=== PATIENT | female | born 1995 ===

== ENCOUNTER 2020-03-17 22:45 | Inpatient (IN) | payer OTHER ==
--- NOTE | 2020-03-18 00:35 | HP ---
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: No: Alzheimer's, CVA, Dementia, Migraine, Multiple Sclerosis, Peripheral Neuropathy, Parkinson's, Seizure, Syncope, TIA, Vertigo, Other Pulmonary: No: Asthma, Bronchitis, Cancer, COPD, O2 Dependent, Pneumonia, Previously Intubated, Pulmonary Embolus, Pulmonary Fibrosis, Sleep Apnea, Other Gastrointestinal: No: Ascites, Cancer, Constipation, Crohn's Disease, Diverticulitis, Diverticulosis, Esophageal Varices, Gastritis, GERD, GI Bleed, Hemorrhoids, Hiatal Hernia, Inflamatory Bowel Disease, Irritable Bowel Disease, Pancreatitis, Peptic Ulcer Disease, Ulcerative Colitis, Other Hepatobiliary: No: Cirrhosis, Cholelithiasis, Cholecystitis, Choledocholithiasis, Hepatitis A, Hepatitis B, Hepatitis C, Other Renal/: No: Renal Failure, Renal Inusuff, BPH, Cancer, Hematuria, Hemodia lysis, Neurogenic Bladder, Renal Calculi, UTI, Other Reproductive: No: Ectopic , Endometriosis, Fibroids, PID, Polycystic Ovary Syndrome, Postmenopausal, Other Heme/Onc: No: Anemia, B12 Deficiency, Bleeding Disorder, Cancer, Current Chemotherapy, Current Radiation Therapy, Hemochromatosis, Hypercoaguable State, Myeloproliferative Synd, Sickle Cell Disease, Sickle Cell Trait, Thrombocytopenia, Other Infectious Disease: No: AIDS, C-Diff, Herpes Zoster, HIV, MRSA, STD's, Tuberculosis, VREF, Other Psych: No: Addictions, Anxiety, Bipolar, Depression, Panic, Psychosis, Schizophrenia, Other Musculoskeletal: No: Bursitis, Chronic low back pain, Hemiparesis, Hemiplegia, Osteoarthritis, Paraplegia, Other Rheumatology: No: Fibromyalgia, Gout, Lupus, Rheumatoid Arthritis, Sarcoidosis, Vasculitis, Other ENT: No: Allergic Rhinitis, Sinusitis, Other Endocrine: No: [place]'s Disease, [place]'s Disease, Diabetes Insipidus, Diabetes Mellitus, Hyperparathyroidism, Hyperthyroidism, Hypothyroidism, Osteopenia, SIADH, Other - Past Surgical History Past Surgical History: Yes: None Hx Myomectomy: No Hx Transabdominal Cerclage: No Home Medications - Allergies Allergies/Adverse Reactions: Allergies Allergy/AdvReac Type Severity Reaction Status Date / Time No Known Allergies Allergy Verified 03/18/20 01:21 - Home Medications Home Medications: Ambulatory Orders Vitamins (Sjr) - 1 tab PO DAILY 03/18/20 Family Medical History Family History: Unable to Obtain Assessment/Plan Patient is a multiparous female presenting in precipitous labor at 39.3wks as per patient with no available documentation and delivered by in-house laborist (safety office) Dr Andrews. Please refer to his documentation for additional details regarding delivery. Patient lives in a [facility].
[2020-03-18] MEDS ORDERED: ACETAMINOPHEN 325 MG TABLET (FP) ONE (00:36)
[2020-03-18] MEDS ORDERED: IBUPROFEN 600 MG TABLET (FP) PO ONE (00:36)
[2020-03-18] MEDS ORDERED: OXYTOCIN 20 UNITS in 0.9% NS 20 UNIT/1,000 ML INFUS.BAG IV ONE (00:36)
[2020-03-18] MEDS ORDERED: ACETAMINOPHEN 325 MG TABLET (FP) PO PRN (00:41)
[2020-03-18] MEDS ORDERED: BISACODYL 10 MG SUPP.RECT RC PRN (00:41)
[2020-03-18] MEDS ORDERED: IBUPROFEN 600 MG TABLET (FP) PO PRN (00:41)
[2020-03-18] MEDS ORDERED: BENZOCAINE 20% 57 GM BOTTLE TP PRN (00:41)
[2020-03-18] MEDS ORDERED: BENZOCAINE 28 GM HEMORRHOIDAL OINTMENT TP PRN (00:41)
[2020-03-18] MEDS ORDERED: WITCH HAZEL 50% (TUCKS) 40 PAD/JAR PAD TP PRN (00:41)
[2020-03-18] MEDS ORDERED: OXYTOCIN 20 UNITS in 0.9% NS 20 UNIT/1,000 ML INFUS.BAG IV SCH (00:45)
[2020-03-18] MEDS ORDERED: ELECTROLYTE-148 SOLN 1,000 ML IV SCH (00:45)
[2020-03-18 01:44] VITALS: BMI 39.1
[2020-03-18 01:49] LABS: BASO % 0.3 % (0-2.0); EOS % 1.1 % (0-4.5); HEMATOCRIT 36.9 % (32.4-45.2); HEMOGLOBIN 11.9 GM/dL (10.7-15.3); LYMPH % 8.9 % (8-40); MCH 27.3 pg (25.7-33.7); MCHC 32.3 g/dl (32.0-36.0); MEAN CELL VOLUME 84.3 fl (80-96); MEAN PLT VOLUME 9.6 fl (7.5-11.1); MONO % 4.7 % (3.8-10.2); PLATELET COUNT 383 K/MM3 (134-434); RBC 4.38 M/mm3 (3.60-5.2); RDW 15.1 % (11.6-15.6)
[2020-03-18 02:00] LABS: INR 0.9 (0.83-1.09); PROTHROMBIN TIME (PATIENT) 10.6 SEC (9.7-13.0)
[2020-03-18 02:03] LABS: ACTIVATED PTT 34.1 SECONDS (25.2-36.5)
[2020-03-18 02:09] LABS: ALBUMIN 2.6 g/dl (3.4-5.0); BILIRUBIN,TOTAL 0.4 mg/dL (0.2-1); BLOOD UREA NITROGEN 6.9 mg/dL (7-18); CALCIUM 8.7 mg/dL (8.5-10.1); CREATININE 0.6 mg/dL (0.55-1.3); POTASSIUM 4.5 mmol/L (3.5-5.1); TOT PROT 6.8 g/dl (6.4-8.2)
[2020-03-18 03:01] LABS: EPI CELLS >36 /uL (0-25.1); HYALINE CASTS 151 /uL (0-3.1); URINE APPEARANCE TURBID; URINE BILIRUBIN 1+ (NEGATIVE); URINE COLOR RED; URINE GLUCOSE (UA) NEGATIVE (NEGATIVE); URINE KETONE NEGATIVE (NEGATIVE); URINE LEUK ESTERASE 2+ (NEGATIVE); URINE NITRITE POSITIVE (NEGATIVE); URINE PROTEIN 2+ (NEGATIVE); URINE RBC 40692 /uL (0-23.9); URINE UROBILINOGEN 0.2 mg/dL (0.2-1.0); URINE WBC 156 /uL (0-25.8)
[2020-03-18 03:07] LABS: URINE BACTERIA 1.9 /uL (0-1359)
[2020-03-18 03:10] LABS: COCAINE, UR NEGATIVE ng/ml (CUTOFF=300); METHADONE, UR NEGATIVE ng/ml (CUTOFF=300); OPIATES, URI NEGATIVE ng/ml (CUTOFF=300); PHENCYCLIDINE,URINE NEGATIVE ng/ml (CUTOFF=25); URINE AMPHETAMINES NEGATIVE ng/ml (CUTOFF=500); URINE BARBITURATES NEGATIVE ng/ml (CUTOFF=200); URINE BENZODIAZEPINES NEGATIVE ng/ml (CUTOFF=200)
--- NOTE | 2020-03-18 07:26 | PN ---
Post Progress Note - Subjective Subjective: Patient is doing well, breast feeding, tolerating PO, voiding, lochia decreased. Post Day: 1 Type of Delivery: Vital Signs: Vital Signs Temperature 98.6 F 03/18/20 05:32 Pulse Rate 94 H 03/18/20 05:32 Respiratory Rate 18 03/18/20 05:32 Blood Pressure 123/77 03/18/20 05:32 O2 Sat by Pulse Oximetry (%) 100 03/18/20 00:45 Breast Exam: Yes: Other Uterus: Yes: Fundus Firm Abdomen/GI: Yes: Abdomen soft Lochia, amount: Moderate Extremities: Yes: Calves non-tender Activity: Ambulating - Labs Labs: CBC WBC 14.0 K/mm3 (4.0-10.0) H 03/18/20 01:40 RBC 4.38 M/mm3 (3.60-5.2) 03/18/20 01:40 Hgb 11.9 GM/dL (10.7-15.3) 03/18/20 01:40 Hct 36.9 % (32.4-45.2) 03/18/20 01:40 MCV 84.3 fl (80-96) 03/18/20 01:40 MCH 27.3 pg (25.7-33.7) 03/18/20 01:40 MCHC 32.3 g/dl (32.0-36.0) 03/18/20 01:40 RDW 15.1 % (11.6-15.6) 03/18/20 01:40 Plt Count 383 K/MM3 (134-434) 03/18/20 01:40 MPV 9.6 fl (7.5-11.1) 03/18/20 01:40 Absolute Neuts (auto) 11.9 K/mm3 (1.5-8.0) H 03/18/20 01:40 Neutrophils % 85.0 % (42.8-82.8) H 03/18/20 01:40 Lymphocytes % 8.9 % (8-40) 03/18/20 01:40 Monocytes % 4.7 % (3.8-10.2) 03/18/20 01:40 Eosinophils % 1.1 % (0-4.5) 03/18/20 01:40 Basophils % 0.3 % (0-2.0) 03/18/20 01:40 Nucleated RBC % 0 % (0-0) 03/18/20 01:40 Problem List - Problems (1) Precipitous delivery Code(s): O62.3 - PRECIPITATE LABOR (2) Homeless Code(s): Z59.0 - HOMELESSNESS Assessment/Plan PPD # 1 in stable condition, at bedside, homeless. -SW consult -Encourage ambulation and breast feeding -F/W lab results -Anticipate D/C home on PPD # 2
--- NOTE | 2020-03-18 07:51 | PN ---
Delivery - Delivery Vaginal Delivery: No Problems (Evaluated pt. who was fully dilated, intact membranes. Delivered about 5 min. later with SROM, thick meconium. Girl, vigorously suctioned, apgars 8 and 9.), Spontaneous Type of Anesthesia: None Episiotomy/Laceration: None EBL (cc): 300 Delivery, Single - Stages of Labor Date 1st Stage Initiatied: 03/17/20 Time 1st Stage Initiated: 19:00 Date 2nd Stage Initiated: 03/17/20 Time 2nd Stage Initiated: 23:00 Date of Delivery: 03/18/20 Time of Delivery: 23:16 Time Placenta Delivered: 23:18 Placenta: Yes: Spontaneous, Normal Configuration (Small.) - Condition of Infant Specimen Preparation Assistant/Celluloid Trimmer Present: No Gender: Female Weight: 6 lb 12 oz Position: OA Total Hours ROM (Hrs/Mins): 1m - 1 Minute Total Score: 8 5 Minutes Total Score: 9 - Feeding Plan Initial Plan: Elected not to breastfeed exclusively throughout hospitalization Remarks - Remarks Remarks: NVSD, precipitous. Thick meconium. No epis., no lacerations.
[2020-03-19 08:38] VITALS: BP 117/64; PULSE 85; TEMP 98.5
--- NOTE | 2020-03-19 08:46 | DS ---
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 No: Calf Tenderness Edema: No Neurological: Yes: WNL ...Motor Strength: WNL Psychiatric: Yes: WNL, Alert, Oriented Labs: CBC, BMP 03/18/20 01:40 03/18/20 01:40 Delivery - Delivery Vaginal Delivery: No Problems (Evaluated pt. who was fully dilated, intact membranes. Delivered about 5 min. later with SROM, thick meconium. Girl, vigorously suctioned, apgars 8 and 9.), Spontaneous Type of Anesthesia: None Episiotomy/Laceration: None EBL (cc): 300 Delivery, Single - Stages of Labor Date 1st Stage Initiatied: 03/17/20 Time 1st Stage Initiated: 19:00 Date 2nd Stage Initiated: 03/17/20 Time 2nd Stage Initiated: 23:00 Date of Delivery: 03/18/20 Time of Delivery: 23:16 Time Placenta Delivered: 23:18 Placenta: Yes: Spontaneous, Normal Configuration (Small.) - Condition of Infant Circuit Breaker Mechanic/Speech Language Therapist Present: No Infant Gender: Female Weight: 6 lb 12 oz Position: OA Total Hours ROM (Hrs/Mins): 1m - 1 Minute Total Score: 8 5 Minutes Total Score: 9 - Feeding Plan Initial Plan: Elected not to breastfeed exclusively throughout hospitalization Remarks - Remarks Remarks: pp course uneventful s/p discharge 03/19/20 Discharge Summary Problems reviewed: Yes Reason For Visit: LABOR Current Active Problems 39 weeks gestation of (Acute) Homeless (Acute) Precipitous delivery (Acute) Condition: Stable - Instructions Diet, Activity, Other Instructions: Discharge Instructions * Out of Bed * * Regular Diet * Jenn Care * Avoid sex for 6 weeks * rtc 3 weeks for pp visit If you experience excessive bleeding or fever over 101 degrees, call doctor, the clinic or go to the Emergency Room. Referrals: Jaspreet Queen MD [Staff Physician] - Disposition: HOME - Home Medications Comprehensive Discharge Medication List: Ambulatory Orders Acetaminophen [Tylenol .Regular Strength -] 650 mg PO Q4H PRN tablet 03/19/20 Ibuprofen [Motrin -] 600 mg PO Q6H PRN #20 tablet 03/19/20 Vitamins (Sjr) - 1 tab PO DAILY #30 tablet 03/19/20
--- NOTE | 2020-03-19 09:38 | PN ---
Progress Note (short form) - Note Progress Note: PP # 2 Feels well. Good recovery. Uterus well contracted. Discharge today.
[2020-03-19 10:49] LABS: BASO % 0.7 % (0-2.0); EOS % 3.8 % (0-4.5); HEMATOCRIT 32.1 % (32.4-45.2); HEMOGLOBIN 10.8 GM/dL (10.7-15.3); LYMPH % 15.3 % (8-40); MCHC 33.8 g/dl (32.0-36.0); MEAN CELL VOLUME 82.8 fl (80-96); MEAN PLT VOLUME 8.9 fl (7.5-11.1); MONO % 4.5 % (3.8-10.2); NEUT % 75.7 % (42.8-82.8); PLATELET COUNT 337 K/MM3 (134-434); RBC 3.87 M/mm3 (3.60-5.2); RDW 15.5 % (11.6-15.6); WHITE BLOOD COUNT 8.8 K/mm3 (4.0-10.0)
[2020-03-19] MEDS ORDERED: SENNOSIDES/DOCUSATE COMBO (SENNA PLUS) TABLET (UD) PO PRN (22:00)
== END 2020-03-19 12:20 | disposition home or self-care (01) | DRG 560 ==
LOC: JDEL 22:45 → JLDR 23:00 → J3W 03-18 02:46
PROVIDERS: ADMIT Student in an Organized Health Care Education/Training Program; ATTEND Student in an Organized Health Care Education/Training Program
PROC: 10E0XZZ Delivery of Products of Conception, External Approach (ICD-10-PCS; principal; 2020-03-17)
DX: O77.0 Labor and delivery complicated by meconium in amniotic fluid (principal); O62.3 Precipitate labor; Z37.0 Single live birth; Z3A.39 39 weeks gestation of pregnancy; O99.214 Obesity complicating childbirth; E66.8 Other obesity; Z59.0 Homelessness
CPT/HCPCS: 36415; 59409; 80053; 80307; 81003; 85025; 85610; 85730; 86762; 86780; 86850; 86900; 86901; 87340; 87389; U0003